=== PATIENT | male | born 1975 | race Caucasian/White ===

== ENCOUNTER 2023-09-17 00:25 | Emergency (ER) | payer OTHER, SELFPAY ==
[2023-09-17 00:28] VITALS: BP 125/88; PULSE 106; RESP 15; TEMP 36.9; O2SAT 100
[2023-09-17 01:07] VITALS: PULSE 0; O2SAT 100
[2023-09-17 01:08] VITALS: BP 153/135; PULSE 0; O2SAT 100
--- NOTE | 2023-09-17 01:15 | ED.GENADULT ---
HPI - General Adult General Chief complaint: Animal Bite Stated complaint: dog bite to R pointer finger Time Seen by Provider: 09/17/23 01:06 History of Present Illness HPI narrative: patient for a 7-year-old gentleman presents emergency department with chief complaint of right index finger abrasion from a dog. Patient reports that his niece has a pit bull puppy and the puppy accidentally caught his finger with its to patient reports that the wound does not gape open reports that he believes his last tetanus was in the last 5 years the patient reports he believes the animal is had 2 shots so far and reports that the animal is observable Related Data Allergies Allergy/AdvReac Type Severity Reaction Status Date / Time No Known Allergies Allergy Verified 09/17/23 01:19 Review of Systems Review of Systems: A 10 system review of systems was completed on the patient and is negative except for what is stated in the HPI. Nursing and ancillary documentation was reviewed. Exam Narrative: GENERAL: Well-appearing, well-nourished, and in no acute distress. HEAD: Normocephalic, atraumatic. EYES: PERRLA and EOMI. ENT: Nares clear, no rhinorrhea or epistaxis. Mucous membranes moist. NECK: Supple. CHEST: Clear to auscultation. No respiratory distress. HEART: Regular rate and rhythm. No murmur heard. Normal peripheral pulses. ABDOMEN: Soft, nontender, nondistended, normal active bowel sounds. EXTREMITIES: Normal range of motion small abrasion to the palmar aspect of the right index finger wound does not gape open. No edema. SKIN: Warm, dry, no rash. NEURO: No focal deficits. Alert and oriented x3. PSYCH: Normal mood and affect. Course Vital Signs Vital signs: Vital Signs Temperature 36.9 C 09/17/23 00:28 Pulse Rate 106 H 09/17/23 00:28 Respiratory Rate 15 09/17/23 00:28 Blood Pressure 125/88 09/17/23 00:28 Pulse Oximetry 100 09/17/23 00:28 Oxygen Delivery Room Air 09/17/23 00:28 Temperature 36.9 C 09/17/23 00:28 Pulse Rate 106 H 09/17/23 00:28 Respiratory Rate 15 09/17/23 00:28 Blood Pressure 125/88 09/17/23 00:28 Pulse Oximetry 100 09/17/23 00:28 Oxygen Delivery Room Air 09/17/23 00:28 Medical Decision Making MDM Narrative Medical decision making narrative: differential diagnosis includes puncture wound, laceration, abrasion the patient was concerned about possible rabies exposure. Given that the animal is a canine and it is his niece is Pat and has potentially been vaccinated with at least 2 vaccines and is showing no symptoms of rabies it was explained to the patient this is a very low risk injury. the patient is this time has opted to not do rabies vaccine due to the low risk of canine cases in the [place]. The patient will confirm with his primary provider about his tetanus status. The patient was started on Augmentin in the emergency department Vital Signs Vital Signs: Vital Signs Temperature 36.9 C 09/17/23 00:28 Pulse Rate 106 H 09/17/23 00:28 Respiratory Rate 15 09/17/23 00:28 Blood Pressure 125/88 09/17/23 00:28 Pulse Oximetry 100 09/17/23 00:28 Oxygen Delivery Room Air 09/17/23 00:28 Temperature 36.9 C 09/17/23 00:28 Pulse Rate 106 H 09/17/23 00:28 Respiratory Rate 15 09/17/23 00:28 Blood Pressure 125/88 09/17/23 00:28 Pulse Oximetry 100 09/17/23 00:28 Oxygen Delivery Room Air 09/17/23 00:28 Discharge Plan Discharge Clinical Impression: Dog bite Patient Disposition: Home, Self-Care Condition: Stable Instructions: Antibiotic Form, Animal Bite (ED) Prescriptions: New amoxicillin-pot clavulanate 875-125 mg tablet 1 tablet PO Q12H 10 Days Qty: 20 0RF Follow-up/Referrals: Warren Lomeli MD [Physician] - UNKNOWN,DOCTOR [Primary Care Provider] - Time of Disposition: :20
[2023-09-17] MEDS: AMOXICILLIN/CLAVULANATE K 875-125 MG TAB 1 TABLET PO (01:26)
[2023-09-17 01:43] VITALS: BP 136/76; PULSE 68; RESP 16; O2SAT 98
== END 2023-09-17 01:44 | disposition home or self-care (01) ==
PROVIDERS: Emergency Provider Emergency Medicine
DX: S61.250A Open bite of right index finger without damage to nail, initial encounter (principal); W54.0XXA Bitten by dog, initial encounter
CPT/HCPCS: 99283; A9270

== ENCOUNTER 2023-10-04 08:57 | Emergency (ER) | payer OTHER, SELFPAY ==
[2023-10-04] VITALS (17 sets, daily range): BP systolic 121–153; BP diastolic 85–92; PULSE 89–107; RESP 11–24; TEMP 36.4; O2SAT 98–100
--- NOTE | 2023-10-04 09:48 | ECG_ITS ---
Test Date: 2023-10-04 10:20:05 Measurements Intervals [place] Rate: 90 P: 45 AR: 136 QRS: 22 QRSD: 99 T: 38 QT: 343 QTc: 421 Interpretive Statements SINUS RHYTHM INCOMPLETE RIGHT BUNDLE BRANCH BLOCK BORDERLINE ECG No previous ECG available for comparison Electronically Signed On 10-04-2023 10:25:23 CDT by Bassem Casanova D.O.
--- NOTE | 2023-10-04 09:48 | ED.ANXIETY ---
HPI - Anxiety General Chief Complaint: Anxiety Stated Complaint: panic attack Time Seen by Provider: 10/04/23 09:40 Source: patient Mode of arrival: ambulatory Limitations: no limitations History of Present Illness HPI narrative: Shai is a 47-year-old male patient presenting to the ER today with complaints of anxiety attack that started around 430 this morning. 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 States there has been a lot of increased stress over the last few days and the family and he started having a anxiety attack this morning. States he is having some chest pain, shortness of breath, and overall not feeling well. States that since he has been in the ER his symptoms have been improved Related Data Allergies Allergy/AdvReac Type Severity Reaction Status Date / Time No Known Allergies Allergy Verified 10/04/23 09:12 Review of Systems Review of Systems: Pertinent positives per HPI. Patient denies any fever, chills, rash, headache, visual changes, dizziness, cough, runny nose, sore throat, shortness of breath, chest pain, palpitations, nausea, vomiting, diarrhea, constipation, abdominal pain, or any urinary issues. PMFSH Comments At the time of my signature, I reviewed and agree with the nursing past medical, surgical, social, and family history. There is no relevant family history pertinent to the patient complaint. Exam Narrative: General: Well-developed, well nourished, in no apparent distress Head: Normocephalic, atraumatic. Cardio: Regular rate and rhythm, s1 and s2 normal, no murmur appreciated. Resp: Clear to auscultation bilaterally, no rhonchi, rales, wheezing or rubs. Extremities: No deformity, no edema, no cyanosis, capillary refill less than 2 seconds, peripheral pulses palpable and strong. Integumentary: [place], warm, and dry, intact without lesion, no rashes. Psych: Mildly anxious. Appropriate mood and judgment. Anxious affect. Course Course Emergency Course: Portions of this record may have been created with voice recognition software. Vital Signs Vital signs: Vital Signs Temperature 36.4 C 10/04/23 09:04 Pulse Rate 106 H 10/04/23 09:04 Respiratory Rate 19 10/04/23 09:04 Blood Pressure 153/92 H 10/04/23 09:04 Pulse Oximetry 99 07/05/24 09:04 Oxygen Delivery Room Air 10/04/23 09:04 Temperature 36.4 C 10/04/23 09:04 Pulse Rate 91 10/04/23 10:31 Respiratory Rate 14 10/04/23 10:31 Blood Pressure 121/85 10/04/23 10:31 Pulse Oximetry 98 10/04/23 10:31 Oxygen Delivery Room Air 10/04/23 09:04 Vital signs reviewed MDM - Anxiety MDM Narrative Medical decision making narrative: At the time of visit patient is resting comfortably on the exam table. Patient appears to be nontoxic. EKG: EKG shows sinus rhythm with an incomplete right bundle-branch block with heart rate of 90 beats per minute. No ST elevation, depression, or T-wave inversion noted. Labs: CBC, CMP, and urinalysis are all unremarkable Plan: I suspect patient has acute anxiety. 0.5 mg of alprazolam was given in the ER and this improved patient's symptoms. Will send in prescription for 0.25 mg alprazolam. Supportive measures were discussed with the patient and they voiced understanding discharge instructions and agrees to treatment plan. Return precautions reviewed Differential Diagnosis Differential diagnosis: Likely hyperventilation, panic disorder and acute anxiety Lab Data 10/04/23 10:13 10/04/23 10:13 Labs: Lab Results 10/04/23 Range/Units 10:13 WBC 9.1 (4.5-10.0) K/mm3 RBC 4.93 (4.6-6.20) M/mm3 Hgb 14.8 (14.0-18.0) g/dL Hct 42.2 (42.0-52.0) % MCV 85.6 (80-100) fl MCH 30.0 (26-34) pg MCHC 35.1 (32-36) g/dl RDW 12.4 (11.5-14.5) % Plt Count 338 (150-375) k/mm3 MPV 8.4 (7.4-10.4) fl Immature Gran % (Auto) 0.4 (0-0.5) % Neut % (
[2023-10-04] MEDS: ALPRAZolam (*CRX) 0.5 MG TABLET PO (10:06)
[2023-10-04 10:21] LABS: Appearance Urine Clear (Clear); Basophils Absolute Auto 0.1 K/mm3 (0.0-0.1); Bilirubin Urine Negative (Negative); Blood Urine Negative (Negative); Color Urine Yellow (Yellow); Eosinophils Absolute Auto 0.1 K/mm3 (0-0.3); Eosinophils Percent Auto 0.8 % (0-4.4); Glucose Urine UA Negative (Negative); Hematocrit 42.2 % (42.0-52.0); Hemoglobin 14.8 g/dL (14.0-18.0); Immature Granulocyte Absolute 0.04 K/mm3 (0.00-0.031); Immature Granulocyte Percent A 0.4 % (0-0.5); Ketones Urine Negative (Negative); Leukocyte Esterase Ur Negative LEU/UL (Negative); Lymphocytes Absolute Auto 2.29 K/mm3 (0.9-3.2); Lymphocytes Percent Auto 25.1 % (18.3-44.2); Mean Corpuscular HGB Conc 35.1 g/dl (32-36); Mean Corpuscular Volume 85.6 fl (80-100); Mean Platelet Volume 8.4 fl (7.4-10.4); Monocytes Absolute Auto 0.5 K/mm3 (0.1-0.6); Monocytes Percent Auto 5.7 % (2.6-8.5); Neutrophils Absolute Auto 6.1 K/mm3 (1.3-6.7); Nitrate Urine Negative (Negative); Platelet Count Result 338 k/mm3 (150-375); Protein Urine Negative (Negative); Red Blood Count 4.93 M/mm3 (4.6-6.20); Red Cell Distribution Width 12.4 % (11.5-14.5); Specific Grav Ur 1.006 (1.001-1.035); White Blood Count 9.1 K/mm3 (4.5-10.0)
[2023-10-04 10:25] LABS: Add Urine Microscopic? NO
[2023-10-04 10:32] LABS: Alanine Aminotransferase 16 U/L (6-50); Albumin Level 4.5 g/dL (3.5-5.1); Alkaline Phosphatase 73 U/L (38-126); Anion Gap 8 mmol/L (4-12); Aspartate Amino Transferase 22 U/L (17-59); Bilirubin,Total 0.8 mg/dL (0.2-1.3); Blood Urea Nitrogen 14 mg/dL (9-20); Calcium 9.4 mg/dL (8.4-10.2); Carbon Dioxide 29 mmol/L (22-30); Chloride 104 mmol/L (98-107); Estimated CRCL calculation 82 ml/min; Estimated Glomerular Filt Rate > 60; Glucose 102 mg/dL (65-110); Potassium 3.9 mmol/L (3.4-5.0); Sodium 141 mmol/L (137-145)
[2023-10-04 10:42] LABS: Troponin I < 0.012 ng/mL (0.000-0.034)
[2023-10-04 11:00] LABS: Thyroid Stimulating Hormone 0.421 uIU/mL (0.465-4.680)
== END 2023-10-04 11:08 | disposition home or self-care (01) ==
PROVIDERS: Emergency Provider Nurse Practitioner Family
DX: F41.9 Anxiety disorder, unspecified (principal); I45.10 Unspecified right bundle-branch block
CPT/HCPCS: 36415; 80053; 81003; 84443; 84484; 85025; 93005; 99283; A9270